=== PATIENT | female | born 1980 | race Caucasian/White ===

== ENCOUNTER 2016-04-30 20:55 | Inpatient (IN) | payer OTHER ==
[2016-04-30] MEDS ORDERED: OXYTOCIN 15 UNITS/ LR 250 ML 250 ML IVPB SCH (21:45)
[2016-04-30] MEDS: DEXTROSE 5%-LACTATED RINGERS 1,000 ML IV SCH (22:00)
[2016-04-30] MEDS ORDERED: VANCOMYCIN 1 GRAM (PRE-DOCKED) 1,000 MG/250 ML BAG IVPB ONE (22:10)
[2016-04-30 22:26] LABS: BASOPHIL 0.2 % (0-2.0); EOSINOPHIL 0.8 % (0-4.5); MCH 31.4 pg (25.7-33.7); MCHC 34.1 g/dl (32.0-36.0); MEAN CELL VOLUME 92.2 fl (80-96); MEAN PLT VOLUME 8.5 fl (7.5-11.1); NEUTROPHILS 79.2 % (42.8-82.8); PLATELET COUNT 242 K/MM3 (134-434); RDW 12.9 % (11.6-15.6); WHITE BLOOD COUNT 16.8 K/mm3 (4.0-10.0)
[2016-04-30 22:36] LABS: INR 0.95 (0.82-1.09); PROTHROMBIN TIME (PATIENT) 10.4 SEC (9.98-11.88)
[2016-04-30 22:39] LABS: ACTIVATED PTT 28.2 SECONDS (26.9-34.4)
--- NOTE | 2016-04-30 22:40 | HP ---
Past Medical History - Primary Care Physician PCP:: Brenda San - Admission Chief Complaint: 36 yo P0 @ 39.4wks presented c/o LOF, clear, @ 8:30pm, some cramping, no VB, +FM History of Present Illness: 1.GBS+/Clindamycin resistant infection, PCN Allergic-Vancomycin ordered for prophylaxis, first dose now, next dose @ 10am, ID service request activated 2.H/o Exlap for Endometriotic ovarian cyst 3.BL knee surgeries ( 6x right and 1x left) sports related 4.h/o treated Lyme dz 5.Morbid, Class 3 obesity/ Excessive wt gain in 6.LGA fetus, GCT normal twice, EFW 2/7 - 3530gm 7.Gestational HTN, currently no PEC symptoms 8.h/o ITP - PLt normal this History Source: Patient, Medical Record Limitations to Obtaining History: No Limitations - Past Medical History Reproductive: Yes: Endometriosis ...Para: 0 ... Weeks Gestation by Dates: 39.4 Rheumatology: Yes: Fibromyalgia - Past Surgical History Hx Myomectomy: No Hx Transabdominal Cerclage: No Additional Surgical History: Bilateral knee surgery. ExLap/Endometrioma - Smoking History Have you smoked in the past 12 months: No - Alcohol/Substance Use Hx Alcohol Use: No History of Substance Use: reports: None - Social History Usual Living Arrangement: Yes: With Parent History of Recent Travel: No Home Medications - Allergies Allergies/Adverse Reactions: Allergies Allergy/AdvReac Type Severity Reaction Status Date / Time cyclobenzaprine HCl Allergy Severe Verified 04/30/16 22:32 [From Flexeril] mushroom Allergy Severe Verified 04/30/16 22:32 Penicillins Allergy Severe Verified 04/30/16 22:32 COCONUT Allergy Severe Uncoded 04/30/16 22:32 - Home Medications Home Medications: Ambulatory Orders Pnv95/Iron Fum/Folic Acid [ Caplet] 1 tab PO DAILY 04/22/16 Cetirizine HCl [Zyrtec -] 10 mg PO DAILY 04/30/16 Review of Systems - Review of Systems Constitutional: reports: No Symptoms Eyes: reports: No Symptoms HENT: reports: No Symptoms Neck: reports: No Symptoms Cardiovascular: reports: No Symptoms Respiratory: reports: No Symptoms Gastrointestinal: reports: No Symptoms Genitourinary: reports: No Symptoms Breasts: reports: No Symptoms Reported Musculoskeletal: reports: No Symptoms Integumentary: reports: No Symptoms Neurological: reports: No Symptoms Endocrine: reports: No Symptoms Hematology/Lymphatic: reports: No Symptoms Psychiatric: reports: No Symptoms Physical Exam - Maternity Constitutional: Yes: Well Nourished Neck: Yes: WNL Cardiovascular: Yes: WNL Lungs: Clear to auscultation - Abdominal Exam/OB Fundal Height: 41 Number of Fetuses: Single Presentation: Vertex Contractions: Yes Regularity: Irregular Intensity: Mild Monitor Mode: External Heart Rate (range): 140's Heart Rate Location: [facility], [facility] Category: I Accelerations: Uniform Decelerations: None - Vaginal Exam/OB Vaginal Bleediing: No Speculum Exam: No Dilatation (cm): 4 Effacement (%): 80% Amniotic Membrane Status: Ruptured Nitrazine Test: Positive Amniotic Fluid: Yes: Clear Assessment/Plan 36 yo P0 @ 39.4 wks with PROM in early labor with above mentioned problems Patient is extensivly concelled on risks of 1c/s vs. induction of labor, considering her significant commodities: Class3 obesity, macrosomia, transient HTN; Risks such as PEC, shoulder distocia, prolonged failed induction with risk of chorioamnionitis in case of induction Risks such as Uterine scar, atony, injury to bowel, bladder, vessels, DVT, complications with future Patient understands, desires to proceed with Induction of labor
[2016-04-30 23:07] VITALS: BMI 42.3
[2016-04-30 23:22] LABS: URINE APPEARANCE SLCLOUDY; URINE BILIRUBIN NEGATIVE (NEGATIVE); URINE BLOOD 2+ (NEGATIVE); URINE COLOR LTYELLOW; URINE GLUCOSE (UA) NEGATIVE (NEGATIVE); URINE KETONE NEGATIVE (NEGATIVE); URINE NITRITE NEGATIVE (NEGATIVE); URINE PROTEIN 1+ (NEGATIVE); URINE UROBILINOGEN NEGATIVE E.U./dl (0.2-1.0)
[2016-04-30 23:23] LABS: URINE LEUK ESTERASE 2+ (NEGATIVE)
[2016-04-30 23:25] LABS: CALCIUM 8.9 mg/dL (8.5-10.1); CREATININE 0.7 mg/dL (0.55-1.02)
[2016-04-30 23:42] LABS: URINE BACTERIA RARE /hpf (NONE SEEN); URINE RBC 39 /hpf (0-3); URINE WBC 33 /hpf (3-5)
[2016-05-01 01:26] LABS: HIV 1 & 2 AB NEGATIVE; HIV 1 AGp24 NEGATIVE
[2016-05-01] MEDS: DEXTROSE 5%-LACTATED RINGERS 1,000 ML IV SCH (06:16)
--- NOTE | 2016-05-01 08:32 | PN ---
Progress Note, Labor Vaginal Exam #1 Labor Exam Date: 05/01/16 Labor Exam Time: 08:00 Heart Rate (range): 140's Dilatation: 4-5cm Effacement (%): 75% Amniotic Membrane Status: Ruptured Presentation: Vertex/Position Station: -3 Remarks: 36yo P0 @ 39wks with PROM in early labor IOL on Pitocin 13mU/min MF status reassuring Afibrile, not requiring pain meds Elective c/s offered again All options revisited with the patient Desires to cont. BETSY
[2016-05-01] MEDS ORDERED: IBUPROFEN 800 MG/8 ML IJ IVPB PRN ×2 (10:59→11:11)
[2016-05-01] MEDS ORDERED: ONDANSETRON 4 MG/2 ML VIAL IVPUSH PRN ×2 (11:00→18:37)
--- NOTE | 2016-05-01 11:05 | PN ---
Progress Note (short form) - Note Progress Note: 9 am cx 4 cm 75 vx -3 mr, fhr cat 1, regular contraction q 2 min
--- NOTE | 2016-05-01 11:07 | PN ---
Progress Note (short form) - Note Progress Note: cx 4 cm, no changes, head high, advised c/s rba discussed
[2016-05-01] MEDS ORDERED: diphenhydrAMINE HCL 25 MG CAPSULE (FP) PO PRN (11:11)
[2016-05-01] MEDS ORDERED: WITCH HAZEL 50% (TUCKS) 40 PAD/JAR PAD TP PRN (11:11)
[2016-05-01] MEDS ORDERED: oxyCODONE HCL 5 MG TABLET PO PRN (11:11)
[2016-05-01] MEDS ORDERED: METHYLERGONOVINE MALEATE 0.2 MG/1 ML AMP IM PRN (11:11)
[2016-05-01] MEDS ORDERED: BENZOCAINE 20% 57 GM BOTTLE TP PRN (11:11)
[2016-05-01] MEDS ORDERED: BENZOCAINE 28 GM HEMORRHOIDAL OINTMENT PR PRN (11:11)
[2016-05-01] MEDS ORDERED: OXYTOCIN 20 UNITS in 0.9% NS 1,000 ML IV SCH (11:15)
[2016-05-01] MEDS ORDERED: DEXTROSE 5%-LACTATED RINGERS 1,000 ML IV SCH (19:15)
[2016-05-01] MEDS: CLINDAMYCIN 900 MG PREMIX IVPB 50 ML IVPB SCH (19:26)
[2016-05-02] MEDS: CLINDAMYCIN 900 MG PREMIX IVPB 50 ML IVPB SCH ×2 (02:50→11:27)
--- NOTE | 2016-05-02 08:13 | PN ---
Progress Note (short form) - Note Progress Note: pod 1 doing well, ambulating, tolorating diet CBC, BMP 04/30/16 22:10 04/30/16 22:10 Last Vital Signs Temp Pulse Resp BP Pulse Ox 98.0 F 110 H 20 115/61 99 05/02/16 06:00 05/02/16 06:00 05/02/16 06:00 05/02/16 06:00 05/01/16 13:15 abdomen soft, no distension, no cva incision dry, clean no excess vaginal bleeding, no calf tenderness plan ambulate, advance diet cbc
[2016-05-02] MEDS: oxyCODONE HCL 5 MG TABLET PO PRN ×2 (08:53→18:14)
[2016-05-02] MEDS: IBUPROFEN 600 MG TABLET (FP) PO PRN ×2 (08:54→18:14)
[2016-05-02] MEDS: SIMETHICONE 80 MG TAB.CHEW (FP) PO PRN ×2 (08:55→18:14)
[2016-05-02 09:25] LABS: MCH 30.9 pg (25.7-33.7); MCHC 33.1 g/dl (32.0-36.0); MEAN CELL VOLUME 93.4 fl (80-96); MEAN PLT VOLUME 8.1 fl (7.5-11.1); PLATELET COUNT 191 K/MM3 (134-434); RDW 12.6 % (11.6-15.6)
[2016-05-02] MEDS: ENOXAPARIN NA (PORCINE) 40 MG/0.4 ML DISP.SYRIN SQ SCH (10:49)
[2016-05-02] MEDS ORDERED: BISACODYL 10 MG SUPP.RECT RC PRN (11:11)
[2016-05-02] MEDS: SENNOSIDES/DOCUSATE COMBO (SENNA PLUS) TABLET (UD) PO PRN (21:47)
[2016-05-03] MEDS: oxyCODONE HCL 5 MG TABLET PO PRN ×4 (00:13→21:57)
[2016-05-03] MEDS: SIMETHICONE 80 MG TAB.CHEW (FP) PO PRN ×3 (00:13→21:45)
[2016-05-03] MEDS: IBUPROFEN 600 MG TABLET (FP) PO PRN ×3 (00:14→21:45)
--- NOTE | 2016-05-03 07:30 | PN ---
Progress Note (short form) - Note Progress Note: pod 2 doing well, ambulate CBC, BMP 05/02/16 08:45 04/30/16 22:10 Last Vital Signs Temp Pulse Resp BP Pulse Ox 98.3 F 110 H 20 122/67 99 05/02/16 20:34 05/02/16 20:34 05/02/16 20:34 05/02/16 20:34 05/01/16 13:15 abdomen soft, no distension, ,BS present lochia mild no calf tenderness plan ambulate, cbc in am leukocytosis, asymptomatic, will repeat cbc in am
[2016-05-03] MEDS: ENOXAPARIN NA (PORCINE) 40 MG/0.4 ML DISP.SYRIN SQ SCH (09:13)
[2016-05-03] MEDS: SENNOSIDES/DOCUSATE COMBO (SENNA PLUS) TABLET (UD) PO PRN (21:58)
[2016-05-04 07:33] LABS: BASOPHIL 0.3 % (0-2.0); EOSINOPHIL 1.7 % (0-4.5); MCH 31.4 pg (25.7-33.7); MCHC 33.8 g/dl (32.0-36.0); MEAN PLT VOLUME 7.7 fl (7.5-11.1); NEUTROPHILS 78.6 % (42.8-82.8); PLATELET COUNT 208 K/MM3 (134-434); RDW 12.7 % (11.6-15.6); WHITE BLOOD COUNT 11.5 K/mm3 (4.0-10.0)
--- NOTE | 2016-05-04 08:23 | PN ---
Post Progress Note - Subjective Subjective: 36 yo P1 no s/p 1' LST c/s ambulating, +BM Post Day: 3 Type of Delivery: Primary C/S Vital Signs: Vital Signs Temperature 97.3 F L 05/04/16 07:42 Pulse Rate 99 H 05/04/16 07:42 Respiratory Rate 20 05/04/16 07:42 Blood Pressure 128/73 05/04/16 07:42 O2 Sat by Pulse Oximetry (%) 99 05/01/16 13:15 Breast Exam: Yes: Soft Uterus: Yes: Fundus Firm Incision: Yes: Sutures intact Abdomen/GI: Yes: Abdomen soft Lochia: Yes: Rubra Lochia, amount: Small Extremities: Yes: Edema (+2, improving) Activity: Ambulating - Labs Labs: CBC WBC 11.5 K/mm3 (4.0-10.0) H D 05/04/16 06:20 RBC 2.92 M/mm3 (3.60-5.2) L 05/04/16 06:20 Hgb 9.2 GM/dL (10.7-15.3) L D 05/04/16 06:20 Hct 27.1 % (32.4-45.2) L D 05/04/16 06:20 MCV 93.0 fl (80-96) 05/04/16 06:20 MCHC 33.8 g/dl (32.0-36.0) 05/04/16 06:20 RDW 12.7 % (11.6-15.6) 05/04/16 06:20 Plt Count 208 K/MM3 (134-434) 05/04/16 06:20 MPV 7.7 fl (7.5-11.1) 05/04/16 06:20 Neutrophils % 78.6 % (42.8-82.8) 05/04/16 06:20 Lymphocytes % 11.2 % (8-40) D 05/04/16 06:20 Monocytes % 8.2 % (3.8-10.2) D 05/04/16 06:20 Eosinophils % 1.7 % (0-4.5) D 05/04/16 06:20 Basophils % 0.3 % (0-2.0) 05/04/16 06:20 Differential Comment Manual diff done 05/02/16 08:45 Assessment/Plan 36 yo P1 s/p 1' c/s VSS, Afibrile Doing well some anemia, proper diet discussed Rh+ Boy for circ, under the lights Plan to d/c 05/05/16 NPV x 6wks RTO 1 wk
[2016-05-04] MEDS: ENOXAPARIN NA (PORCINE) 40 MG/0.4 ML DISP.SYRIN SQ SCH (09:06)
[2016-05-04] MEDS: IBUPROFEN 600 MG TABLET (FP) PO PRN ×3 (10:04→23:17)
[2016-05-04] MEDS: SIMETHICONE 80 MG TAB.CHEW (FP) PO PRN ×3 (10:04→23:16)
--- NOTE | 2016-05-04 12:56 | OP ---
DATE OF OPERATION: 05/02/2016 PREOPERATIVE DIAGNOSIS: 39 weeks, rupture of membrane, labor, failure to dilate. POSTOPERATIVE DIAGNOSIS: 39 weeks, rupture of membrane, labor, failure to dilate. PROCEDURE PERFORMED: Primary low segment transverse section. SURGEON: Gil Montoya MD ANESTHESIA: Spinal. ESTIMATED BLOOD LOSS: 500 mL. PROCEDURE IN DETAIL: The patient was taken to the operating room where adequate spinal anesthesia was given after which the perineum was prepped and draped. Pfannenstiel abdominal skin incision was made. The abdominal wall was cut layer by layer until the peritoneum was exposed and incised. Upon entering the abdominal cavity, lower uterine segment was identified and uterovesical fold of the peritoneum was established. The bladder was pushed down. A low transverse uterine incision was made. The incision was extended laterally. Amniotic sac was entered, clear fluid, head delivered. Nasal pharynx was suctioned and live baby boy was delivered. Placenta was delivered manually. Uterine cavity was cleaned of all remaining tissue. Uterine incision was closed in 2 layers. First layer within 0 Biosyn continuous suture, the 2nd layer with 0 Biosyn imbricating the 1st layer. Bladder flap was closed with 0 Biosyn continuous suture. Both tubes and ovaries were checked and were normal. No active bleeding was seen. All the laps, sponge and instrument counts were correct. The peritoneum was closed with 0 Biosyn continuous suture. Muscles were brought together with interrupted suture of 0 Biosyn. Fascia was closed with 0 Biosyn continuous sutures. Subcutaneous fat with interrupted suture of 0 Biosyn and skin was closed with 4-0 Biosyn subcuticular continuous suture. The patient tolerated the procedure well and left the OR in good condition. [place] [id number]
[2016-05-05] MEDS: ENOXAPARIN NA (PORCINE) 40 MG/0.4 ML DISP.SYRIN SQ SCH (10:15)
[2016-05-05] MEDS: IBUPROFEN 600 MG TABLET (FP) PO PRN ×2 (10:16→14:36)
--- NOTE | 2016-05-05 11:04 | DS ---
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 Signs: Vital Signs Temperature 97.2 F L 05/05/16 07:43 Pulse Rate 77 05/05/16 07:43 Respiratory Rate 18 05/05/16 07:43 Blood Pressure 118/77 05/05/16 07:43 O2 Sat by Pulse Oximetry (%) 99 05/01/16 13:15 Constitutional: Yes: Well Nourished, No Distress, Calm Eyes: Yes: WNL, Conjunctiva Clear, EOM Intact HENT: Yes: WNL, Atraumatic, Normocephalic Neck: Yes: WNL, Supple, Trachea Midline Cardiovascular: Yes: WNL, Regular Rate and Rhythm Respiratory: Yes: WNL, Regular, CTA Bilaterally Gastrointestinal: Yes: WNL ...Rectal Exam: Yes: WNL Renal/: Yes: WNL ....Post : Yes: Uterus firm, Uterus non-tender, Slight lochia rubra Breast(s): Yes: WNL Musculoskeletal: Yes: WNL Extremities: Yes: WNL Edema: LLE: Trace, RLE: Trace Integumentary: Yes: WNL Wound/Incision: Yes: Clean/Dry, Well Approximated, Sutures Intact Neurological: Yes: WNL, Alert, Oriented ...Motor Strength: WNL Psychiatric: Yes: WNL, Alert, Oriented Labs: CBC, BMP 05/04/16 06:20 04/30/16 22:10 Delivery - Delivery Section: Primary, Low Flap Transverse (no complication) Type of Anesthesia: Spinal Episiotomy/Laceration: None EBL (cc): 600 Delivery, Single - Stages of Labor Date 1st Stage Initiatied: 05/01/16 Time 1st Stage Initiated: 09:00 Date 2nd Stage Initiated: 05/01/16 Date of Delivery: 05/01/16 Time of Delivery: 11:33 Time Placenta Delivered: 11:34 Placenta: Yes: Expressed - Condition of Infant Coatings Inspector/Creative Coordinator Present: Yes Name: Melody Retana Infant Gender: Male Weight: 9 lb 8 oz Position: Left, OP Total Hours ROM (Hrs/Mins): 15/5 - 1 Minute Total Score: 9 5 Minutes Total Score: 9 - Feeding Plan Initial Plan: Exclusive throughout hospitalization Discharge Summary Reason For Visit: LABOR Procedures: Principal: primary LST c/s - Instructions Diet, Activity, Other Instructions: Physical activity Resume your normal everyday activity as tolerated no heavy lifting or exercise until seen by your surgeon. You may walk unlimited shannon of and climb stairs. You may resume driving the car when you feel safe and comfortable behind the wheel. No sexual activity as instructed. Wound care If you have a bandage, leave it on, and keep dry for 48-72 hours. After that time discard the outer bandage. If they are tapes on the skin under the out of bandage leave them in place. They will peel off in the next 7 to 10 days. Do Not Peel them off. You may shower the day after surgery. If there are tapes present on the skin, you may shower over them. Diet There are no dietary restrictions. Eat healthy, high-fiber foods. Drink 6 to 8 glasses of liquid each day. This will assist in keeping your bowels are regular. Pain management You may take Tylenol or acetaminophen or Ibuprofen (for example, Motrin, Advil etc.) from my pain prescription medication is ordered should be taken as prescribed for moderate to severe pain. Call MD for any of the following: Severe pain not relieved by medication Fever of 101 or higher Excessive bleeding or drainage on dressing Inability to urinate regular diet, follow up office 1 week Referrals: Gil Montoya MD [Staff Physician] - Disposition: HOME - Home Medications Comprehensive Discharge Medication List: Ambulatory Orders Pnv95/Iron Fum/Folic Acid [ Caplet] 1 tab PO DAILY 04/22/16 Cetirizine HCl [Zyrtec -] 10 mg PO DAILY 04/30/16 Ibuprofen [Motrin -] 600 mg PO QID #28 tablet 05/01/16 Oxycodone HCl 5 mg PO TID #20 capsule MDD 4 05/05/16
[2016-05-05] MEDS: LABETALOL HCL 200 MG TABLET (FP) PO PRN (15:53)
--- NOTE | 2016-05-05 17:50 | CONSULT ---
Consult Consult Specialty:: Nephrology Reason for Consultation:: HTN - History of Present Illness Chief Complaint: s/p History of Present Illness: Pt is a 36 year old female who is s/p a few days ago. I was called to evaluate her for hypertension. I am her PMD. She has been stable through the however had several episodes of hypertension over the last week. She complains of lower extremity edema that has not improved much. She denies headache. She is awake and alert. She does complain of fatigue. - History Source History Provided By: Patient, Medical Record - Past Medical History Rheumatology: Yes: Fibromyalgia - Past Surgical History Past Surgical History: Yes: Additional Surgical History: Bilateral knee surgery. ExLap/Endometrioma - Alcohol/Substance Use Hx Alcohol Use: No History of Substance Use: reports: None - Smoking History Smoking history: Never smoked Have you smoked in the past 12 months: No - Social History History of Recent Travel: No Home Medications - Allergies Allergies/Adverse Reactions: Allergies Allergy/AdvReac Type Severity Reaction Status Date / Time acetaminophen [From Tylenol] Allergy Severe Verified 05/01/16 14:24 cyclobenzaprine HCl Allergy Severe Verified 04/30/16 22:32 [From Flexeril] mushroom Allergy Severe Verified 04/30/16 22:32 Penicillins Allergy Severe Verified 04/30/16 22:32 COCONUT Allergy Severe Uncoded 04/30/16 22:32 - Home Medications Home Medications: Ambulatory Orders Pnv95/Iron Fum/Folic Acid [ Caplet] 1 tab PO DAILY 04/22/16 Cetirizine HCl [Zyrtec -] 10 mg PO DAILY 04/30/16 Ibuprofen [Motrin -] 600 mg PO QID #28 tablet 05/01/16 Oxycodone HCl 5 mg PO TID #20 capsule MDD 4 05/05/16 Family Disease History - Family Disease History Other Family History: pancreatic cancer Review of Systems - Review of Systems Constitutional: denies: Chills, Fever Eyes: reports: No Symptoms HENT: reports: No Symptoms Neck: reports: No Symptoms Cardiovascular: reports: Edema. denies: Palpitations Respiratory: denies: SOB, SOB on Exertion Gastrointestinal: reports: No Symptoms Genitourinary: reports: Other (s/p c section) Integumentary: reports: No Symptoms Neurological: reports: No Symptoms Endocrine: reports: No Symptoms Psychiatric: reports: No Symptoms Physical Exam Vital Signs: Vital Signs Temperature 97.2 F L 05/05/16 07:43 Pulse Rate 98 H 05/05/16 14:30 Respiratory Rate 18 05/05/16 14:30 Blood Pressure 152/92 05/05/16 14:30 O2 Sat by Pulse Oximetry (%) 99 05/01/16 13:15 Constitutional: Yes: Calm Eyes: Yes: Conjunctiva Clear HENT: Yes: Atraumatic Neck: Yes: Supple Cardiovascular: Yes: S1, S2 Respiratory: Yes: CTA Bilaterally Gastrointestinal: Yes: Soft Renal/: Yes: Other (dressing in place). No: CVA Tenderness - Left, CVA Tenderness - Right Musculoskeletal: Yes: WNL Edema: Yes Edema: LLE: 3+, RLE: 3+ Neurological: Yes: Oriented Psychiatric: Yes: Oriented Labs: CBC, BMP 05/04/16 06:20 04/30/16 22:10 Laboratory Tests 04/30/16 04/30/16 04/30/16 22:10 22:10 22:10 WBC 16.8 H Hgb Hct 36.2 Sodium 140 Chloride 107 Carbon Dioxide 23 Anion Gap 10 BUN 10 Creatinine 0.7 Random Glucose 78 U Random Total Protein Urine Creatinine RPR Titer Nonreactive HIV 1&2 Antibody Screen HIV P24 Antigen 04/30/16 05/02/16 05/04/16 22:10 08:45 06:20 WBC 21.0 H 11.5 H D Hgb 10.7 D 9.2 L D Hct Sodium Chloride Carbon Dioxide Anion Gap BUN Creatinine Random Glucose U Random Total Protein Urine Creatinine RPR Titer HIV 1&2 Antibody Screen Negative HIV P24 Antigen Negative 05/05/16 05/05/16 14:45 14:45 WBC Hgb Hct Sodium Chloride Carbon Dioxide Anion Gap BUN Creatinine Random Glucose U Random Total Protein 42 H Urine Creatinine 34.0 RPR Titer HIV 1&2 Antibody Screen HIV P24 Antigen Problem List - Problems (1) Hypertension Code(s): I10 - ESSENTIAL (PRIMARY) HYPERTENSION Assessment/Plan Current Medications Generic Name Dose Route Start Last Admin Trade Name Freq PRN Reason Stop Dose Admin Benzocaine 1 applic 05/01/16 11:11 Americaine Ointment - CO PRN PRN PAIN Benzocaine 1 spray 05/01/16 11:11 Americaine 20% [facility] - TP PRN PRN PAIN Bisacodyl 10 mg 05/02/16 11:11 Dulcolax Suppository - RC PRN PRN CONSTIPATION Diphenhydramine HCl 25 mg 05/01/16 11:00 05/02/16 02:55 Benadryl Injection - IVPUSH 25 mg Q4H PRN Administration FOR ITCHING Diphenhydramine HCl 25 mg 05/01/16 11:11 Benadryl - PO Q8H PRN FOR ITCHING Enoxaparin Sodium 40 mg 05/02/16 10:00 05/05/16 10:15 Lovenox - SQ 40 mg DAILY JANENE Administration Ibuprofen 600 mg 05/01/16 11:11 05/05/16 14:36 Motrin - PO 600 mg Q4H PRN Administration PAIN Labetalol HCl 200 mg 05/05/16 15:27 05/05/16 15:53 Normodyne - PO 200 mg Q6H PRN Administration FOR BP Methylergonovine Maleate 0.2 mg 05/01/16 11:11 Methergine Injection - IM Q4H PRN EXCESSIVE BLEEDING Senna/Docusate Sodium 2 tablet 05/03/16 22:00 05/03/16 21:58 Pericolace - PO 2 tablet HS PRN Administration CONSTIPATION Simethicone 80 mg 05/01/16 11:11 05/04/16 23:16 Mylicon - PO 80 mg Q4H PRN Administration GAS Witch Joanna/Glycerin 1 pad 05/01/16 11:11 Tucks Pads - TP PRN PRN PAIN Laboratory Tests 05/04/16 06:20 MCV 93.0 Impression 1. HTN 2. Proteinuria 3. s/p 4. lower extremity edema 5. anemia Plan - d/c motrin - agree with labetolol - monitor blood pressure, please call me if sbp is greater than 150 or DBP greater than 100 - will repeat bloodwork and urine studies in am - will check b12 and folate levels as MCV is on high side - will follow closely Dr Adkins
[2016-05-05] MEDS ORDERED: oxyCODONE HCL 5 MG TABLET PO PRN (18:45)
[2016-05-05] MEDS: SIMETHICONE 80 MG TAB.CHEW (FP) PO PRN (20:42)
[2016-05-06] MEDS: SIMETHICONE 80 MG TAB.CHEW (FP) PO PRN (03:27)
[2016-05-06] MEDS ORDERED: oxyCODONE HCL 5 MG TABLET PO PRN (03:50)
[2016-05-06] MEDS: LABETALOL HCL 200 MG TABLET (FP) PO PRN (08:02)
[2016-05-06 08:17] VITALS: PULSE 106; TEMP 97.8
[2016-05-06 08:25] LABS: URINE COLOR YELLOW
[2016-05-06 08:26] LABS: URINE APPEARANCE CLEAR; URINE BILIRUBIN NEGATIVE (NEGATIVE); URINE BLOOD 3 (NEGATIVE); URINE GLUCOSE (UA) NEGATIVE (NEGATIVE); URINE KETONE NEGATIVE (NEGATIVE); URINE PROTEIN NEGATIVE (NEGATIVE)
[2016-05-06 08:27] LABS: URINE LEUK ESTERASE 2+ (NEGATIVE); URINE NITRITE NEGATIVE (NEGATIVE); URINE UROBILINOGEN NORMAL E.U./dl (0.2-1.0)
[2016-05-06 08:30] LABS: URINE BACTERIA RARE /hpf (NONE SEEN); URINE RBC 281 /hpf (0-3); URINE WBC 51 /hpf (3-5); YEAST RARE
[2016-05-06] MEDS: ENOXAPARIN NA (PORCINE) 40 MG/0.4 ML DISP.SYRIN SQ SCH (09:36)
[2016-05-06 11:07] LABS: URINE CREATININE 39.2 mg/dL
[2016-05-06 11:31] VITALS: BP 128/71
[2016-05-06 12:48] LABS: CREATININE 0.6 mg/dl (0.6-1.3); GLUCOSE,RANDOM 86 mg/dl (74-106)
[2016-05-06 12:49] LABS: ALBUMIN 2.2 g/dl (3.5-5.0); ALK PHOS 138 U/L (32-92); ANION GAP 10 (8-16); BILIRUBIN,TOTAL 0.4 mg/dl (0.2-1.0); CALCIUM 8.4 mg/dl (8.4-10.2); CO2 24 mmol/L (22-28); SGOT/AST 32 U/L (10-42); SGPT/ALT 55 U/L (10-40); TOT PROT 5.5 g/dl (6.4-8.3)
[2016-05-06 14:38] LABS: MCH 31.6 pg (25.7-33.7); MEAN CELL VOLUME 93.9 fl (80-96); WHITE BLOOD COUNT 9.2 K/mm3 (4.0-10.0)
[2016-05-06 14:39] LABS: BASOPHIL 0.9 % (0-2.0); EOSINOPHIL 2.1 % (0-4.5); MCHC 33.6 g/dl (32.0-36.0); MEAN PLT VOLUME 7.8 fl (7.5-11.1); PLATELET COUNT 256 K/MM3 (134-434); RDW 12.6 % (11.6-15.6)
--- NOTE | 2016-05-06 15:52 | PN ---
Progress Note, Physician History of Present Illness: Pt seen and examined at bedside. She is awake and alert. She feels much better today. - Current Medication List Current Medications: Active Medications Benzocaine (Americaine Ointment -) 1 applic ND PRN PRN PRN Reason: PAIN Benzocaine (Americaine 20% Gravette -) 1 spray TP PRN PRN PRN Reason: PAIN Bisacodyl (Dulcolax Suppository -) 10 mg RC PRN PRN PRN Reason: CONSTIPATION Diphenhydramine HCl (Benadryl Injection -) 25 mg IVPUSH Q4H PRN PRN Reason: FOR ITCHING Last Admin: 05/02/16 02:55 Dose: 25 mg Diphenhydramine HCl (Benadryl -) 25 mg PO Q8H PRN PRN Reason: FOR ITCHING Enoxaparin Sodium (Lovenox -) 40 mg SQ DAILY JANENE Last Admin: 05/06/16 09:36 Dose: 40 mg Labetalol HCl (Normodyne -) 200 mg PO Q6H PRN PRN Reason: FOR BP Last Admin: 05/06/16 08:02 Dose: 200 mg Methylergonovine Maleate (Methergine Injection -) 0.2 mg IM Q4H PRN PRN Reason: EXCESSIVE BLEEDING Oxycodone HCl (Roxicodone -) 5 mg PO Q4H PRN PRN Reason: PAIN Last Admin: 05/06/16 03:52 Dose: 5 mg Senna/Docusate Sodium (Pericolace -) 2 tablet PO HS PRN PRN Reason: CONSTIPATION Last Admin: 05/03/16 21:58 Dose: 2 tablet Simethicone (Mylicon -) 80 mg PO Q4H PRN PRN Reason: GAS Last Admin: 05/06/16 03:27 Dose: 80 mg Witch Joanna/Glycerin (Tucks Pads -) 1 pad TP PRN PRN PRN Reason: PAIN - Objective Vital Signs: Vital Signs Temperature 97.8 F 05/06/16 08:17 Pulse Rate 106 H 05/06/16 08:17 Respiratory Rate 20 05/06/16 08:18 Blood Pressure 128/71 05/06/16 11:31 O2 Sat by Pulse Oximetry (%) 99 05/01/16 13:15 Constitutional: Yes: Calm Eyes: Yes: Conjunctiva Clear HENT: Yes: Atraumatic Neck: Yes: Supple Cardiovascular: Yes: S1, S2 Respiratory: Yes: CTA Bilaterally Gastrointestinal: Yes: Soft, Abdomen, Obese Genitourinary: Yes: Other (s/p ) Musculoskeletal: Yes: WNL Edema: Yes Edema: LLE: 2+, RLE: 2+ Neurological: Yes: Oriented Psychiatric: Yes: Oriented Labs: CBC, BMP 05/06/16 06:45 05/06/16 06:45 INR, PTT INR 0.95 (0.82-1.09) 04/30/16 22:10 Problem List - Problems (1) Hypertension Code(s): I10 - ESSENTIAL (PRIMARY) HYPERTENSION Assessment/Plan Current Medications Generic Name Dose Route Start Last Admin Trade Name Freq PRN Reason Stop Dose Admin Benzocaine 1 applic 05/01/16 11:11 Americaine Ointment - ND PRN PRN PAIN Benzocaine 1 spray 05/01/16 11:11 Americaine 20% Gravette - TP PRN PRN PAIN Bisacodyl 10 mg 05/02/16 11:11 Dulcolax Suppository - RC PRN PRN CONSTIPATION Diphenhydramine HCl 25 mg 05/01/16 11:00 05/02/16 02:55 Benadryl Injection - IVPUSH 25 mg Q4H PRN Administration FOR ITCHING Diphenhydramine HCl 25 mg 05/01/16 11:11 Benadryl - PO Q8H PRN FOR ITCHING Enoxaparin Sodium 40 mg 05/02/16 10:00 05/06/16 09:36 Lovenox - SQ 40 mg DAILY JANENE Administration Labetalol HCl 200 mg 05/05/16 15:27 05/06/16 08:02 Normodyne - PO 200 mg Q6H PRN Administration FOR BP Methylergonovine Maleate 0.2 mg 05/01/16 11:11 Methergine Injection - IM Q4H PRN EXCESSIVE BLEEDING Oxycodone HCl 5 mg 05/06/16 03:50 05/06/16 03:52 Roxicodone - PO 5 mg Q4H PRN Administration PAIN Senna/Docusate Sodium 2 tablet 05/03/16 22:00 05/03/16 21:58 Pericolace - PO 2 tablet HS PRN Administration CONSTIPATION Simethicone 80 mg 05/01/16 11:11 05/06/16 03:27 Mylicon - PO 80 mg Q4H PRN Administration GAS Witch Joanna/Glycerin 1 pad 05/01/16 11:11 Tucks Pads - TP PRN PRN PAIN Laboratory Tests 05/06/16 05/06/16 06:30 06:30 Urine Protein Negative D Protein/Creatinin Ratio 0.637 Laboratory Tests 05/06/16 06:45 Vitamin B12 323 Serum Folate 22 H Impression 1. HTN 2. Proteinuria 3. s/p 4. lower extremity edema 5. anemia Plan - BP is improved - pt will monitor it at home - avoid nsaids - edema is improving - labs reviewed, hg is improved - repeat UA neg for protein - will see in office Dr Adkins
--- NOTE | 2016-05-08 14:43 | PATH ---
Surgical Pathology Report Patient Name: SARAH SALAZAR [facility]. Rec. #: [id number] /Age/Gender: 1980 (Age: 36) / F Account: [id number] Location: [facility] OBS/INSTRUCTOR FLYING Taken: 05/01/2016 Received: 05/02/2016 Reported: 05/08/2016 Physicians: Gil Montoya M.D. Specimen(s) Received PLACENTA Clinical History term SROM Failure to dilate Final Diagnosis PLACENTA, DELIVERY: FOCALLY DISRUPTED THIRD TRIMESTER PLACENTA WITH THREE VESSEL UMBILICAL CORD AND UNREMARKABLE PLACENTAL MEMBRANES. Electronically Signed Rich Chilel M.D. Gross Description The specimen is received fresh labeled placenta and is a 532 gram, 20.0 x 15.0 x 2.5 cm. placenta with attached membranes and umbilical cord. The attached membranes are nelson, translucent with focal opacities and insert marginally. The umbilical cord measures 33 cm. in length and averages 1 cm. in diameter. The cord inserts eccentrically, 5.5 cm. to the nearest margin. No true knots or strictures are identified. Cut surface of the umbilical cord reveals 3 vessels. The surface is mackey blue with moderate fibrin deposition and appropriate caliber vessels. The maternal surface is red-brown with focal defects. Sectioning reveals red-brown, spongy parenchyma. No lesions are identified. Cytology Laboratory Manager sections are submitted in three cassettes as follows: 1- membrane rolls and umbilical cord; 2-3- full thickness sections of placenta. 05/07/201605/07/2016
== END 2016-05-06 17:00 | disposition home or self-care (01) | DRG 765 ==
LOC: JDEL 20:55 → JLDR 21:10 → J3W 05-01 14:30
PROVIDERS: ADMIT Obstetrics & Gynecology; ATTEND Obstetrics & Gynecology
PROC: 10D00Z1 Extraction of Products of Conception, Low, Open Approach (ICD-10-PCS; principal; 2016-05-02)
DX: O62.0 Primary inadequate contractions (principal); Z68.41 Body mass index [BMI] 40.0-44.9, adult; O42.92 Full-term premature rupture of membranes, unspecified as to length of time between rupture and onset of labor; O99.214 Obesity complicating childbirth; E66.01 Morbid (severe) obesity due to excess calories; O13.4 Gestational [pregnancy-induced] hypertension without significant proteinuria, complicating childbirth; O99.824 Streptococcus B carrier state complicating childbirth; O99.02 Anemia complicating childbirth; D64.9 Anemia, unspecified; O36.63X0 Maternal care for excessive fetal growth, third trimester, not applicable or unspecified; Z3A.39 39 weeks gestation of pregnancy; Z37.0 Single live birth
CPT/HCPCS: 36415; 80048; 80053; 81003; 81015; 82570; 82607; 82746; 84156; 85025; 85610; 85730; 86593; 86850; 86900; 86901; 87389; 88307-TC

== ENCOUNTER 2017-03-09 17:25 | Emergency (ER) | payer OTHER ==
[2017-03-09 17:31] VITALS: TEMP 97.8; BMI 27.8
[2017-03-09] MEDS ORDERED: SODIUM CHLORIDE 1,000 ML IV STA (18:14)
[2017-03-09] MEDS ORDERED: KETOROLAC TROMETHAMINE 30 MG/1 ML VIAL IVPUSH ONE (18:14)
[2017-03-09 18:20] LABS: EOS % 1.5 % (0-4.5); HEMOGLOBIN 14.9 GM/dL (10.7-15.3); WHITE BLOOD COUNT 8.4 K/mm3 (4.0-10.0)
[2017-03-09] MEDS ORDERED: KETOROLAC TROMETHAMINE 30 MG/1 ML VIAL ONE (18:22)
[2017-03-09 18:24] LABS: HCG,QUALITATIVE URINE NEGATIVE
--- NOTE | 2017-03-09 18:24 | PDOC ---
History of Present Illness - History of Present Illness Initial Comments: 03/09/17 18:35 36 y/o F with a PMH of asthma, presents to the ED with RLQ pain for 3 days. Patient reports the pain is gradually worsening. She states that the pain resolved Leander night, but came back the next morning and has been constant for the past two days. She reports associated nausea with food. She also reports some diarrhea on Leander and yesterday morning, which has since resolved. She denies fever, chills. She denies chest pain, SOB. <Amber Burdick - Last Filed: 03/09/17 18:35> - General History Source: Patient Exam Limitations: No Limitations <Tye Hawkins - Last Filed: 03/09/17 18:58> - General Chief Complaint: Pain Stated Complaint: PAIN Time Seen by Provider: 03/09/17 18:00 Past History <Amber Burdick - Last Filed: 03/09/17 18:35> - Past Medical History Asthma: Yes Cancer: No Cardiac Disorders: No COPD: No Diabetes: No HTN: No Seizures: No Thyroid Disease: No - Suicide/Smoking/Psychosocial Hx Smoking History: Never smoked Have you smoked in the past 12 months: No Hx Alcohol Use: No Drug/Substance Use Hx: No Substance Use Type: None Hx Substance Use Treatment: No <Tye Hawkins - Last Filed: 03/09/17 18:58> - Past Medical History Allergies/Adverse Reactions: Allergies Allergy/AdvReac Type Severity Reaction Status Date / Time acetaminophen [From Tylenol] Allergy Severe Verified 03/09/17 17:32 cyclobenzaprine HCl Allergy Severe Verified 03/09/17 17:32 [From Flexeril] mushroom Allergy Severe Verified 03/09/17 17:32 Penicillins Allergy Severe Verified 03/09/17 17:32 COCONUT Allergy Severe Uncoded 03/09/17 17:32 Home Medications: Ambulatory Orders Pnv95/Iron Fum/Folic Acid [ Caplet] 1 tab PO DAILY 04/22/16 Cetirizine HCl [Zyrtec -] 10 mg PO DAILY 04/30/16 Ibuprofen [Motrin -] 600 mg PO QID #28 tablet 05/01/16 Oxycodone HCl 5 mg PO TID #20 capsule MDD 4 05/05/16 Review of Systems - Review of Systems Comments:: 03/09/17 18:35 GENERAL/CONSTITUTIONAL: No fever or chills. No weakness. HEAD, EYES, EARS, NOSE AND THROAT: No change in vision. No ear pain or discharge. No sore throat. CARDIOVASCULAR: No chest pain or shortness of breath. RESPIRATORY: No cough, wheezing, or hemoptysis. GASTROINTESTINAL: (+) RLQ pain, nausea, diarrhea. No vomiting,or constipation. GENITOURINARY: No dysuria, frequency, or change in urination. MUSCULOSKELETAL: No joint or muscle swelling or pain. No neck or back pain. SKIN: No rash NEUROLOGIC: No headache, vertigo, loss of consciousness, or change in strength/ sensation. ENDOCRINE: No increased thirst. No abnormal weight change. HEMATOLOGIC/LYMPHATIC: No anemia, easy bleeding, or history of blood clots. ALLERGIC/IMMUNOLOGIC: No hives or skin allergy. <Amber Burdick - Last Filed: 03/09/17 18:35> *Physical Exam - Vital Signs Last Vital Signs Temp Pulse Resp BP Pulse Ox 97.8 F 80 20 134/88 100 03/09/17 17:28 03/09/17 17:28 03/09/17 17:28 03/09/17 17:28 03/09/17 17:28 - Physical Exam Comments: 03/09/17 18:35 GENERAL: Awake, alert, and fully oriented, in no acute distress HEAD: No signs of trauma EYES: PERRLA, EOMI, sclera anicteric, conjunctiva clear ENT: Auricles normal inspection, hearing grossly normal, nares patent, oropharynx clear without exudates. Moist mucosa NECK: Normal ROM, supple, no lymphadenopathy, JVD, or masses LUNGS: Breath sounds equal, clear to auscultation bilaterally. No wheezes, and no crackles HEART: Regular rate and rhythm, normal S1 and S2, no murmurs, rubs or gallops ABDOMEN: Mcburneys point negative, mild RLQ tenderness to palpation. Soft, normoactive bowel sounds. No guarding, no rebound. No masses EXTREMITIES: Normal range of motion, no edema. No clubbing or cyanosis. No cords, erythema, or tenderness NEUROLOGICAL: Cranial nerves II through XII grossly intact. Normal speech, normal gait SKIN: Warm, Dry, normal turgor, no rashes or lesions noted. <Aurora Burdickobmarvin Solis - Last Filed: 03/09/17 18:35> - Vital Signs Last Vital Signs Temp Pulse Resp BP Pulse Ox 97.8 F 80 20 134/88 100 03/09/17 17:28 03/09/17 17:28 03/09/17 17:28 03/09/17 17:28 03/09/17 17:28 <Tye Hawkins - Last Filed: 03/09/17 18:58> ED Treatment Course - LABORATORY CBC & Chemistry Diagram: 03/09/17 17:47 03/09/17 17:47 - ADDITIONAL ORDERS Additional order review: Laboratory Results 03/09/17 17:47 Urine HCG, Qual Negative 03/09/17 17:47 RBC 4.85 D MCV 91.5 MCHC 33.4 RDW 12.4 MPV 8.4 Neutrophils % 52.7 D Lymphocytes % 37.4 D Monocytes % 7.5 Eosinophils % 1.5 Basophils % 0.9 - Medications Given in the ED: ED Medications Discontinued Medications Generic Name Dose Route Start Last Admin Trade Name Tatum PRN Reason Stop Dose Admin Ketorolac Tromethamine 30 mg 03/09/17 18:14 03/09/17 18:27 Toradol Injection - IVPUSH 03/09/17 18:15 30 mg ONCE ONE Administration <Aurora Burdickobmarvin Solis - Last Filed: 03/09/17 18:35> - LABORATORY CBC & Chemistry Diagram: 03/09/17 17:47 03/09/17 17:47 - RADIOLOGY Radiology Studies Ordered: Category Date Time Status TRANSVAGINAL ULTRASOUND US [US] Stat Ultrasound 03/09/17 18:14 Ordered <Tye Hawkins - Last Filed: 03/09/17 18:58> Medical Decision Making - Medical Decision Making 03/09/17 18:17 A portion of this note was documented by scribe services under my direction. I have reviewed the details of the note, within reason, and agree with the documentation with the following case summary and management plan written by me. Patient treated in the ED. Nursing notes are reviewed and incorporated into the medical decision-making. Vital signs reviewed. Peripheral IV access obtained by the nurse, laboratory studies are drawn and sent, reviewed and interpreted by myself. Vital Signs Temp Pulse Resp BP Pulse Ox 97.8 F 80 20 134/88 100 03/09/17 17:28 03/09/17 17:28 03/09/17 17:28 03/09/17 17:28 03/09/17 17:28 36-year-old female history of asthma, ovarian cysts, presents to the emergency department for right lower abdominal pain since 2 days ago. The patient reports that 2 days ago, the patient was doing nothing particular which she felt a sharp right lower quadrant pain that was constant and resolved on its own. Again, today, patient felt the sudden onset of right lower quadrant pain. The patient is unsure of her periods as she is taking control pills. She states that she occasionally gets vaginal spotting. States that today she has been having some mild spotting. Denies dysuria or urinary frequency. Denies nausea or vomiting. Patient moving her bowels normally and tolerating by mouth normally. Denies fevers or chills. Though appendicitis within differential, I suspect this is more likely ovarian cyst. We'll obtain labs including urinalysis to rule out urine tract infection. We'll obtain a transvaginal ultrassound and urine test. If the patient findings are equivocal or the patient is having persistent lower quadrant pain, we'll consider potential CAT scan abdomen pelvis a value for appendicitis. Reassess. 03/09/17 18:58 CBC, BMP 03/09/17 17:47 03/09/17 17:47 CMP Sodium 140 mmol/L (136-145) 03/09/17 17:47 Potassium 4.0 mmol/L (3.5-5.1) 03/09/17 17:47 Chloride 107 mmol/L (98-107) 03/09/17 17:47 Carbon Dioxide 26 mmol/L (21-32) 03/09/17 17:47 Anion Gap 7 (8-16) L 03/09/17 17:47 BUN 7 mg/dL (7-18) D 03/09/17 17:47 Creatinine 0.8 mg/dL (0.55-1.02) 03/09/17 17:47 Creat Clearance w eGFR > 60 (>60) 03/09/17 17:47 Random Glucose 89 mg/dL (74-106) 03/09/17 17:47 Calcium 9.6 mg/dL (8.5-10.1) 03/09/17 17:47 Total Bilirubin 1.0 mg/dL (0.2-1.0) D 03/09/17 17:47 AST 12 U/L (15-37) L 03/09/17 17:47 ALT 35 U/L (12-78) D 03/09/17 17:47 Alkaline Phosphatase 76 U/L (45-117) D 03/09/17 17:47 Total Protein 7.5 g/dl (6.4-8.2) D 03/09/17 17:47 Albumin 4.0 g/dl (3.4-5.0) D 03/09/17 17:47 Lipase 149 U/L (73-393) 03/09/17 17:47 Urine test negative. Case signed out to DR. Khoury for further management and disposition. <Tye Hawkins - Last Filed: 03/09/17 18:58> *DC/Admit/Observation/Transfer - Attestations Scribe Attestion: 03/09/17 18:35 Documentation prepared by Amber Burdick, acting as biomedical photographer for Tye Hawkins MD. <Amber Burdick - Last Filed: 03/09/17 18:35> <Tye Hawkins - Last Filed: 03/09/17 18:58> - Referrals Referrals: Oralia Adkins MD [Primary Care Provider] - - Patient Instructions - Post Discharge Activity
[2017-03-09 18:29] LABS: BASO % 0.9 % (0-2.0); HEMATOCRIT 44.4 % (32.4-45.2); LYMPH % 37.4 % (8-40); MCH 30.6 pg (25.7-33.7); MCHC 33.4 g/dl (32.0-36.0); MEAN CELL VOLUME 91.5 fl (80-96); MEAN PLT VOLUME 8.4 fl (7.5-11.1); MONO % 7.5 % (3.8-10.2); NEUT % 52.7 % (42.8-82.8); PLATELET COUNT 218 K/MM3 (134-434); RBC 4.85 M/mm3 (3.60-5.2); RDW 12.4 % (11.6-15.6)
[2017-03-09 18:43] LABS: ALK PHOS 76 U/L (45-117); ANION GAP 7 (8-16); BLOOD UREA NITROGEN 7 mg/dL (7-18); CALCIUM 9.6 mg/dL (8.5-10.1); CHLORIDE 107 mmol/L (98-107); CO2 26 mmol/L (21-32); CREATININE 0.8 mg/dL (0.55-1.02); GLUCOSE,RANDOM 89 mg/dL (74-106); LIPASE 149 U/L (73-393); SGOT/AST 12 U/L (15-37); SGPT/ALT 35 U/L (12-78); SODIUM 140 mmol/L (136-145); TOT PROT 7.5 g/dl (6.4-8.2)
--- NOTE | 2017-03-09 20:04 | PDOC ---
*Physical Exam - Vital Signs Last Vital Signs Temp Pulse Resp BP Pulse Ox 97.8 F 80 20 134/88 100 03/09/17 17:28 03/09/17 17:28 03/09/17 17:28 03/09/17 17:28 03/09/17 17:28 ED Treatment Course - LABORATORY CBC & Chemistry Diagram: 03/09/17 17:47 03/09/17 17:47 - ADDITIONAL ORDERS Additional order review: Laboratory Results 03/09/17 03/09/17 17:47 17:47 Sodium 140 Potassium 4.0 Chloride 107 Carbon Dioxide 26 Anion Gap 7 L BUN 7 D Creatinine 0.8 Creat Clearance w eGFR > 60 Random Glucose 89 Calcium 9.6 Total Bilirubin 1.0 D AST 12 L ALT 35 D Alkaline Phosphatase 76 D Total Protein 7.5 D Albumin 4.0 D Lipase 149 Urine HCG, Qual Negative 03/09/17 17:47 RBC 4.85 D MCV 91.5 MCHC 33.4 RDW 12.4 MPV 8.4 Neutrophils % 52.7 D Lymphocytes % 37.4 D Monocytes % 7.5 Eosinophils % 1.5 Basophils % 0.9 - Medications Given in the ED: ED Medications Discontinued Medications Generic Name Dose Route Start Last Admin Trade Name Freq PRN Reason Stop Dose Admin Sodium Chloride 1,000 mls @ 1,000 mls/hr 03/09/17 18:14 03/09/17 18:27 Normal Saline - IV 03/09/17 19:13 1,000 mls/hr ASDIR STA Administration Ketorolac Tromethamine 30 mg 03/09/17 18:14 03/09/17 18:27 Toradol Injection - IVPUSH 03/09/17 18:15 30 mg ONCE ONE Administration Medical Decision Making - Medical Decision Making 03/09/17 19:56 pt signed out to me from Dr. Hawkins Pt is a 36y F hx of asthma, presents to the ED with RLQ pain x 3 days that is intermittent associated with nausea and a bit of diarrhea. The pts blood work reviewed and essentially unremarkble. awaiting US results and reassess. suspect ovarian pathogy, If persistent pain consider possible CT for possible appedncitis although clinically inconsistent. 03/09/17 21:54 The patients US returned - unable to visualize R ovary. no signs of torsion on L ovary. no fluid noted. pts quincy is improved, repeat abd exam revelas soft no tenderness will dc the pt with supportive care I discussed the physical exam findings, ancillary test results and final diagnoses with the patient. I answered all of the patient's questions. The patient was satisfied with the care received and felt comfortable with the discharge plan and treatment plan. The patient will call their primary care physician within 24 hours to arrange follow-up and will return to the Emergency Department with any new, persistent or worsening symptoms. *DC/Admit/Observation/Transfer Diagnosis at time of Disposition: Abdominal pain Qualifiers: Abdominal location: right lower quadrant Qualified Code(s): R10.31 - Right lower quadrant pain - Discharge Dispostion Disposition: HOME Condition at time of disposition: Improved Admit: No - Referrals Referrals: Oralia Adkins MD [Primary Care Provider] - - Patient Instructions Printed Discharge Instructions: DI for Abdominal Pain-Adult Additional Instructions: Return to the emergency department immediately with ANY new, persistent or worsening symptoms including worsening abdominal pain, fevers, inability to tolerate oral intake, chest pain, shortness of breath or any other concerns. Stay well hydrated. You MUST call and follow up with your doctor tomorrow. Your emergency department visit is not complete without a followup with your doctor for reevaluation. Please make sure your doctor reviews the results of your emergency evaluation. Print Language: PAKISTANI - Post Discharge Activity
[2017-03-09 21:48] VITALS: BP 132/82; PULSE 78
== END 2017-03-09 22:09 | disposition home or self-care (01) ==
LOC: JER 17:25
PROC: 3E033NZ Introduction of Analgesics, Hypnotics, Sedatives into Peripheral Vein, Percutaneous Approach (ICD-10-PCS; principal; 2017-03-09)
DX: R10.31 Right lower quadrant pain (principal)
CPT/HCPCS: 36415; 76830-TC; 80053; 81003; 83690; 84703; 85025; 87086; 96374; 99282-25

== ENCOUNTER 2020-02-01 04:43 | Inpatient (IN) | payer OTHER ==
[2020-01-31 10:36] VITALS: BMI 27.2
[2020-02-01] MEDS ORDERED: CLINDAMYCIN 300 MG PREMIX IVPB 300 MG/50 ML BAG IVPB ONE (07:00)
[2020-02-01] MEDS ORDERED: BUPIVACAINE HCL 100 ML ONE (10:41)
[2020-02-01] MEDS ORDERED: MIDAZOLAM HCL 2 MG/2 ML SINGLE DOSE VIAL ONE ×3 (10:42→12:17)
[2020-02-01] MEDS ORDERED: ROCURONIUM BROMIDE 50 MG/5 ML SYRINGE ONE ×2 (12:15→13:21)
[2020-02-01] MEDS ORDERED: DEXAMETHASONE SOD PHOSPHATE 4 MG/1 ML VIAL ONE ×2 (12:15→13:56)
[2020-02-01] MEDS ORDERED: fentaNYL CITRATE 250 MCG/5 ML VIAL ONE (12:15)
[2020-02-01] MEDS ORDERED: PROPOFOL 20 ML ONE ×2 (12:15→12:49)
[2020-02-01] MEDS ORDERED: LIDOCAINE HCL/PF 2% SDV 5ML VIAL ONE ×2 (12:15→13:56)
[2020-02-01] MEDS ORDERED: SCOPOLAMINE HYDROBROMIDE 1 PATCH PATCH.TD72 ONE (12:24)
[2020-02-01] MEDS ORDERED: ceFAZolin SODIUM 1 GM VIAL IVPB ONE (12:40)
[2020-02-01] MEDS ORDERED: ceFAZolin SODIUM 1 GM VIAL ONE (12:46)
[2020-02-01] MEDS ORDERED: LIDOCAINE 1%/EPI 1:100000 (50 ML MULTI DOSE VIAL) INF ONE (13:02)
[2020-02-01] MEDS ORDERED: BUPIVACAINE HCL/PF 0.5% (5MG/ML) 10 ML VIAL IJ ONE (13:02)
[2020-02-01] MEDS ORDERED: GLYCOPYRROLATE 0.2 MG/1 ML VIAL ONE (13:56)
[2020-02-01] MEDS ORDERED: NEOSTIGMINE METHYLSULFATE 0.5 MG/ML - 10 ML MDV ONE (13:56)
[2020-02-01] MEDS ORDERED: MORPHINE SULFATE 2 MG/ML VIAL IVPUSH PRN (14:49)
[2020-02-01] MEDS ORDERED: diphenhydrAMINE HCL 25 MG CAPSULE (FP) PO PRN (14:49)
[2020-02-01] MEDS ORDERED: METOCLOPRAMIDE HCL INJECTION 10 MG/2 ML VIAL IVPUSH PRN (14:49)
[2020-02-01] MEDS ORDERED: ONDANSETRON 4 MG/2 ML VIAL IVPB PRN (14:49)
[2020-02-01] MEDS ORDERED: traMADol HCL 50 MG TABLET PO PRN (14:55)
[2020-02-01] MEDS ORDERED: SODIUM CHLORIDE 1,000 ML IV SCH (15:00)
[2020-02-01] MEDS ORDERED: ONDANSETRON 4 MG/2 ML VIAL ONE (16:30)
[2020-02-01] MEDS ORDERED: ONDANSETRON 4 MG/2 ML VIAL IVPUSH ONE (16:34)
[2020-02-02 08:44] VITALS: PULSE 68; TEMP 98.3
[2020-02-02 08:48] VITALS: BP 109/64
[2020-02-02] MEDS: KETOROLAC TROMETHAMINE 30 MG/1 ML VIAL IVPUSH SCH ×3 (09:02→09:39)
[2020-02-02] MEDS ORDERED: ENOXAPARIN NA (PORCINE) 40 MG/0.4 ML DISP.SYRIN SQ ONE (10:00)
== END 2020-02-02 12:00 | disposition home or self-care (01) | DRG 513 ==
LOC: JASU-SURG 04:43 → J2C 15:22 → J3W 02-02 08:20
PROVIDERS: ADMIT Obstetrics & Gynecology Gynecologic Oncology; ATTEND Obstetrics & Gynecology Gynecologic Oncology
PROC: 0UT77ZZ Resection of Bilateral Fallopian Tubes, Via Natural or Artificial Opening (ICD-10-PCS; 2020-02-01)
PROC: 8E0W7CZ Robotic Assisted Procedure of Trunk Region, Via Natural or Artificial Opening (ICD-10-PCS; 2020-02-01)
PROC: 0UT97ZZ Resection of Uterus, Via Natural or Artificial Opening (ICD-10-PCS; principal; 2020-02-01 11:45)
DX: N80.0 Endometriosis of uterus (principal); N94.6 Dysmenorrhea, unspecified; R10.2 Pelvic and perineal pain
CPT/HCPCS: 36415; 80053; 84703; 85025; 86850; 86900; 86901; 88307-TC; 94760

== ENCOUNTER 2023-07-01 09:18 | Emergency (ER) | payer OTHER ==
[2023-07-01 09:24] VITALS: BP 134/85; PULSE 97; RESP 20; TEMP 98.1; BMI 34.7
[2023-07-01] MEDS ORDERED: KETOROLAC TROMETHAMINE 30 MG/1 ML VIAL ONE (09:59)
[2023-07-01] MEDS: KETOROLAC TROMETHAMINE 30 MG/1 ML VIAL IM ONE (10:04)
== END 2023-07-01 11:40 | disposition home or self-care (01) ==
LOC: JER 09:18
PROC: 3E023GC Introduction of Other Therapeutic Substance into Muscle, Percutaneous Approach (ICD-10-PCS; principal; 2023-07-01)
DX: M25.561 Pain in right knee (principal); M25.461 Effusion, right knee
CPT/HCPCS: 73564-TC-RT-FY; 93971-TC; 99284-25

== ENCOUNTER 2024-01-07 10:57 | Emergency (ER) | payer OTHER ==
[2024-01-07 11:09] VITALS: BP 127/83; PULSE 89; RESP 16; TEMP 98.4; BMI 26.6
[2024-01-07] MEDS: SODIUM CHLORIDE 0.9% 500 ML INFUS.BAG IV ONE (13:00)
[2024-01-07 13:12] LABS: BASO % 0.3 % (0-2.0); EOS % 0.2 % (0-4.5); HEMATOCRIT 42.5 % (32.4-45.2); HEMOGLOBIN 14.4 GM/dL (10.7-15.3); LYMPH % 15.4 % (8-40); MCH 30.6 pg (25.7-33.7); MCHC 33.8 g/dl (32.0-36.0); MEAN CELL VOLUME 90.6 fl (80-96); MEAN PLT VOLUME 7.6 fl (7.5-11.1); MONO % 5.2 % (3.8-10.2); NEUT % 78.9 % (42.8-82.8); PLATELET COUNT 257 10^3/uL (134-434); RBC 4.69 M/mm3 (3.60-5.2); RDW 12.7 % (11.6-15.6); WHITE BLOOD COUNT 11.2 K/mm3 (4.0-10.0)
[2024-01-07 13:20] LABS: INR 0.99 (0.83-1.09); PROTHROMBIN TIME (PATIENT) 11.2 SEC (9.7-13.0)
[2024-01-07 13:22] LABS: ACTIVATED PTT 35.1 SECONDS (25.2-36.5)
[2024-01-07 13:35] LABS: PH,URINE 6.5 (5.0-8.0); URINE APPEARANCE CLEAR; URINE BILIRUBIN NEGATIVE (NEGATIVE); URINE COLOR YELLOW; URINE GLUCOSE (UA) NEGATIVE (NEGATIVE); URINE KETONE 1+ (NEGATIVE); URINE LEUK ESTERASE NEGATIVE (NEGATIVE); URINE NITRITE NEGATIVE (NEGATIVE); URINE PROTEIN NEGATIVE (NEGATIVE); URINE UROBILINOGEN 0.2 mg/dL (0.2-1.0)
[2024-01-07 13:38] LABS: POTASSIUM 4.3 mmol/L (3.5-5.1)
[2024-01-07 13:40] LABS: ALBUMIN 4.1 g/dl (3.4-5.0); BLOOD UREA NITROGEN 5.4 mg/dL (7-18)
[2024-01-07 13:43] LABS: CREATININE 0.6 mg/dL (0.55-1.3)
[2024-01-07 13:45] LABS: BILIRUBIN,TOTAL 0.8 mg/dL (0.2-1); TOT PROT 7.3 g/dl (6.4-8.2)
[2024-01-07] MEDS ORDERED: DICYCLOMINE HCL 10 MG CAPSULE ONE (13:59)
[2024-01-07] MEDS: DICYCLOMINE HCL 10 MG CAPSULE PO ONE (14:07)
== END 2024-01-07 14:25 | disposition home or self-care (01) ==
LOC: JER 10:57
DX: K52.9 Noninfective gastroenteritis and colitis, unspecified (principal); R10.84 Generalized abdominal pain
CPT/HCPCS: 36415; 80053; 81003; 85025; 85610; 85730; 87086; 87209; 99283-25